=== PATIENT | male | born 1955 | race Caucasian/White ===

== ENCOUNTER → 2024-01-14 16:58 | Outpatient (REF) | payer OTHER, SELFPAY | LOC: RAD 16:58 | PROVIDERS: ATTENDING PHYSICIAN Student in an Organized Health Care Education/Training Program | DX: M79.89 Other specified soft tissue disorders (principal); R60.9 Edema, unspecified | CPT/HCPCS: 93971 ==

== ENCOUNTER 2024-02-01 15:41 | Emergency (ER) | payer OTHER, SELFPAY ==
[2024-02-01 15:46] VITALS: BP 177/96
[2024-02-01 16:00] VITALS: BP 158/99
--- NOTE | 2024-02-01 16:20 | ED.GENMED ---
History of Present Illness
General
Chief Complaint: Heart Rate Problem
Source: patient and spouse
Exam Limitations: none
Time Seen by Provider: 02/01/24 16:16
Nursing documentation reviewed up to this point in time: agreed with
History of Present Illness
History of Present Illness:
68-year-old male presents emergency department due to elevated blood pressure and heart rate in the 150s. He has had these episodes in the past, but they always go away. Today lasted longer. He follows with Dr. Emerson.
Past History
Past History
ED Past Medical History: HTN, Renal failure, Other (Cryptococcal meningitis ) and Other (Diverticulosis, pneumonia )
ED Past Surgical History: Other (Renal transplant 1999 and again November 2008 )
Social History
Tobacco: Former smoker
Alcohol: None
Drug: None
Personal:
Living: with family
Employment: Not employed
Review of Systems
Review of Systems
Allergies reviewed?: Yes
All Other Systems: Not applicable
Constitutional: Reports no symptoms
EENT: Reports no symptoms
Respiratory: Reports no symptoms
Cardiac: Reports palpitations
ABD/GI: Reports no symptoms
: Reports no symptoms
Musculoskeletal: Reports no symptoms
Skin: Reports no symptoms
Neurological: Reports no symptoms
Endocrine: Reports no symptoms
Hematologic/Lymphatic: Reports no symptoms
Psychiatric: Reports no symptoms
Phy Exam
Physical Exam
Physical Exam:
Physical Exam
General: no apparent distress, not acutely ill
Neck: supple. no meningeal signs. normal posterior pharynx
Heart: s1/s2 regular rate and rhythm, no murmur. equal radial
pulses.
HEENT: Pupils equal round reactive to light, EOMI
Lungs: no acute respiratory distress. clear bilaterally
Abdomen: normal bowel sounds. not tender. no CVAT
Neuro: alert and oriented. no focal neurological deficits cranial nerves II through XII intact
Skin: no rash
Psychiatric: well kept. interactive and cooperative
Extremities: no edema. no calf tenderness. negative homans. good distal pulses, AV fistula left arm, palpable thrill
Course
Orders/Labs/Results
Orders:
Orders
02/01/24 15:45
EKG [Electrocardiogram (*1)] Urgent
Reason for Study: Tachycardia
EKG- Treatment ONCE
02/01/24 16:33
Cardiac Monitoring- Treatment ONCE
IV Insert/Care/Rem.- Treatment PRN
02/01/24 16:35
Complete Blood Count/With Diff Urgent
Comprehensive Metabolic Panel Urgent
Magnesium Urgent
02/01/24 16:38
Electrocardiogram (*1) Urgent
EKG- Treatment ONCE
Abnormal Lab Results
02/01/24
16:35
Absolute Neuts (auto) 7.6 H 10^3/uL
(1.4-6.5)
Absolute Monos (auto) 0.9 H 10^3/uL
(0.1-0.6)
Neutrophils % 78.4 H %
(42.2-75.2)
Lymphocytes % 11.8 L %
(20.5-51.1)
Glucose 130 H mg/dl
(70-99)
02/01/24 16:35
02/01/24 16:35
Vital Signs
Initial and Last Documented VS:
Initial Vital Signs
Pulse Resp BP Pulse Ox
157 18 177/96 98
02/01/24 15:46 02/01/24 15:46 02/01/24 15:46 02/01/24 15:46
Last Documented Vital Signs
Temp Pulse Resp BP Pulse Ox
97.6 F 94 18 158/99 95
02/01/24 15:54 02/01/24 16:00 02/01/24 15:46 02/01/24 16:00 02/01/24 16:32
MDM/Problems Addressed
Differential Diagnosis Includes:
Atrial flutter, atrial fibrillation, SVT
MDM/Problems Addressed:
68-year-old male with paroxysmal atrial flutter. Discussed with Dr. Batres, cardiology, who recommends starting him on apixaban 5 mg twice daily and metoprolol succinate 25 mg daily. Patient stable for discharge. He is a converted to a sinus
rhythm.
Chronic conditions affecting care: HTN and Kidney disease
Acute Exacerbation and/or Progression of Chronic Illness: HTN and Kidney disease
*Pulse Oximetry
Patient hypoxic: no
*EKG
Interpreted by ED Provider?: Yes
EKG Intrepretation Date: 02/01/24
EKG Intrepretation Time: 15:49
Interpretation: abnormal
Comparison EKG: changes noted
Heart Rate: 137
Rate: tachycardiac
Rhythm: atrial flutter
[place]: normal axis
Interval: normal interval
QRS Pattern: normal QRS
Ischemia: non-specific ST changes
*Brush Polisher Interpretation
Rate: normal
Interpretation: normal
Heart Rate: 95
Rhythm: sinus
*Critical Care Note
Total Time (30-74mins, 75-104mins- exclusive of procedures): 30
comment:
Critical care statement: A total of 30 minutes of critical care time was provided for this patient. This includes management of unstable vital signs, evaluation of the patient at bedside, reviewing the patient's pertinent medical records, discussion
with consultants, review of old EKGs and review of pertinent medical records. This time with separate from time utilized to perform the aforementioned documented procedures
Data Reviewed
Review of Other/Old Records Reveals: Labs (Prior creatinine 1.0 on 04/19/2019)
Source: records
Patient Management
Social determinants of health affecting care: Living situation and Strong social support
Discussion with other providers: Quilting Supervisor (Cardiology, Dr. Batres)
Escalation/DeEscalation of care consider admission/obs:
admit not indicated, considered
ED Attending Note
-
Portions of this chart may have been created with voice recognition software.� Occasional wrong word or��sound alike� substitutions may have occurred due to the inherent limitations of voice recognition software.
Discharge Plan
Departure
Patient Disposition: Home (Routine Discharge)
Date of Disposition: 02/01/24
Time of Disposition: 17:23
Patient with high blood pressure during this ER visit?: Yes
Condition: Good
Discharge Problem:
Atrial flutter, paroxysmal
Instructions: Atrial flutter - Discharge instructions, BLOOD PRESSURE
Prescriptions:
New
apixaban 5 mg tablet
5 mg PO BID Qty: 60 0RF
metoprolol succinate 25 mg tablet extended release 24 hr
25 mg PO DAILY Qty: 30 0RF
No Action
aspirin 81 MG tablet,delayed release (DR/EC)
81 mg PO DAILY
calcium carbonate 500 MG tablet
1,000 units PO BID
mycophenolate sodium 180 MG tablet,delayed release (DR/EC)
540 mg PO BID
calcium-vitamin D3-vitamin K 1 EACH tablet,chewable
1 ea PO BID
enalapril maleate 10 MG tablet
10 mg PO HS
atorvastatin 10 MG tablet
10 mg PO QPM
tacrolimus 1 MG capsule
1.5 mg PO BID
Referrals:
Nisha Vasques CRNP [Specified Professional Personl] - 02/23/24 1:00 pm
Interventions
Interventions:
*Risk Screen - Suicide Last Done: 02/01/24 15:56
*General Assessment Last Done: 02/01/24 15:56
*Neglect/Abuse Screening Last Done: 02/01/24 15:56
*ED COVID-19 Vaccine History Last Done: 02/01/24 16:32
ED- Cardiac Assessment Last Done: 02/01/24 16:32
ED- Pulmonary Assessment Last Done: 02/01/24 16:32
Discharge Date and Time
Print Language: [id number]
[2024-02-01 16:30] VITALS: BP 158/99
[2024-02-01 16:31] VITALS: BMI 23.3
[2024-02-01 16:44] LABS: % Basophils 0.4 % (0-2); % Eosinophils 0.4 % (0-6); % Immature Granulocytes 0.3 % (0-0.5); % Lymphocytes 11.8 % (20.5-51.1); % Monocytes 8.7 % (1.7-9.3); % Neutrophils 78.4 % (42.2-75.2); Absolute Lymphocytes 1.2 10^3/uL (1.2-3.4); Absolute Monocytes 0.9 10^3/uL (0.1-0.6); Absolute Neutrophils 7.6 10^3/uL (1.4-6.5); Hematocrit 45.5 % (39.0-52.0); Mean Corpuscular Hgb 30.4 pg (27.0-31.0); Mean Corpuscular Volume 92.1 fL (80.0-94.0); Mean Platelet Volume 9.6 fL (7.4-10.4); Nucleated Red Blood Cells % 0 % (-); Platelet Count 232 10^3/uL (130-400); Red Blood Cell Count 4.94 10^6/uL (4.70-6.10); Red Cell Dist. Width 13.2 % (11.5-14.5); White Blood Cell Count 9.8 10^3/uL (4.8-10.8)
[2024-02-01 17:00] VITALS: BP 146/89
[2024-02-01 17:11] LABS: ALT (SGPT) 17 U/L (0-50); AST (SGOT) 21 U/L (17-59); Albumin 4.6 g/dl (3.5-5.0); Alkaline Phosphatase 57 U/L (38-126); Blood Urea Nitrogen 17 mg/dl (9-20); Carbon Dioxide 26 mmol/L (22-30); Chloride 102 mmol/L (98-107); Estimated Creatinine Clearance 79 ml/min; Glucose 130 mg/dl (70-99); Magnesium 1.9 mg/dl (1.6-2.3); Potassium 4.1 mmol/L (3.5-5.1); Sodium 138 mmol/L (135-145); Total Bilirubin 0.4 mg/dl (0.2-1.3); eGFR > 60.00
[2024-02-01 17:48] VITALS: BP 146/89
[2024-02-01 18:09] VITALS: BP 155/85
== END 2024-02-01 18:11 | disposition home or self-care (01) ==
LOC: EMR 15:41
PROVIDERS: EMERGENCY PHYSICIAN Emergency Medicine; FAMILY PHYSICIAN Student in an Organized Health Care Education/Training Program
DX: I48.92 Unspecified atrial flutter (principal); I12.9 Hypertensive chronic kidney disease with stage 1 through stage 4 chronic kidney disease, or unspecified chronic kidney disease; N18.9 Chronic kidney disease, unspecified; K57.90 Diverticulosis of intestine, part unspecified, without perforation or abscess without bleeding; Z94.0 Kidney transplant status; Z87.891 Personal history of nicotine dependence; Z87.01 Personal history of pneumonia (recurrent); Z79.82 Long term (current) use of aspirin; Z88.6 Allergy status to analgesic agent; Z88.0 Allergy status to penicillin
CPT/HCPCS: 99291; 80053; 83735; 85025; 93005

== ENCOUNTER → 2024-02-23 15:13 | Emergency (ER) | payer OTHER, SELFPAY ==
[2024-02-23 15:15] VITALS: BP 173/86
--- NOTE | 2024-02-23 15:21 | ED.GENMED ---
ED Provider Triage
-
Patient seen by provider in Triage?: Seen in Triage
68-year-old male sent in by Dr. Emerson for intermittent chest discomfort. He was here 2 weeks ago with paroxysmal atrial fibrillation. He is now anticoagulated. Seen by cardiology today but sent here for chest pain. He notes some mild chest
discomfort at triage but vital signs are stable
EKG shows no ischemic changes labs ordered including troponin BNP and lipase. Chest x-ray pending
Patient evaluated by healthcare provider at triage but does warrant further assessment
History of Present Illness
General
Chief Complaint: Chest Pain
Past History
Past History
ED Past Medical History: HTN, Renal failure, Other (Cryptococcal meningitis ) and Other (Diverticulosis, pneumonia )
ED Past Surgical History: Other (Renal transplant 1999 and again November 2008 )
Social History
Tobacco: Former smoker
Alcohol: None
Drug: None
Personal:
Living: with family
Employment: Not employed
Course
Orders/Labs/Results
Orders:
Orders
02/23/24 15:14
Electrocardiogram (*1) Urgent
Reason for Study: Chest Pain
EKG- Treatment ONCE
02/23/24 15:18
Complete Blood Count/With Diff Urgent
Comprehensive Metabolic Panel Urgent
Lipase Urgent
NT-proBNP Urgent
Troponin I Urgent
02/23/24 15:19
CR Chest - 2 Views Urgent
Comment:
Reason For Exam: chest pain
Vital Signs
Initial and Last Documented VS:
Initial Vital Signs
Temp Pulse Resp BP Pulse Ox
97.5 F 59 16 173/86 97
02/23/24 15:15 02/23/24 15:15 02/23/24 15:15 02/23/24 15:15 02/23/24 15:15
Last Documented Vital Signs
Temp Pulse Resp BP Pulse Ox
97.5 F 59 16 173/86 97
02/23/24 15:15 02/23/24 15:15 02/23/24 15:15 02/23/24 15:15 02/23/24 15:15
ED Attending Note
-
Portions of this chart may have been created with voice recognition software.� Occasional wrong word or��sound alike� substitutions may have occurred due to the inherent limitations of voice recognition software.
Discharge Plan
Departure
Prescriptions:
No Action
aspirin 81 MG tablet,delayed release (DR/EC)
81 mg PO DAILY
calcium carbonate 500 MG tablet
1,000 units PO BID
mycophenolate sodium 180 MG tablet,delayed release (DR/EC)
540 mg PO BID
calcium-vitamin D3-vitamin K 1 EACH tablet,chewable
1 ea PO BID
enalapril maleate 10 MG tablet
10 mg PO HS
atorvastatin 10 MG tablet
10 mg PO QPM
tacrolimus 1 MG capsule
1.5 mg PO BID
apixaban 5 mg tablet
5 mg PO BID Qty: 60 0RF
metoprolol succinate 25 mg tablet extended release 24 hr
25 mg PO DAILY Qty: 30 0RF
Interventions
Interventions:
*Risk Screen - Suicide Last Done: 02/23/24 15:15
*Neglect/Abuse Screening Last Done: 02/23/24 15:15
Discharge Date and Time
Print Language: [place]
[2024-02-23 15:47] LABS: % Basophils 0.6 % (0-2); % Eosinophils 1.9 % (0-6); % Immature Granulocytes 0.3 % (0-0.5); % Lymphocytes 24.4 % (20.5-51.1); % Monocytes 10.9 % (1.7-9.3); % Neutrophils 61.9 % (42.2-75.2); Absolute Eosinophils 0.1 10^3/uL (0-0.7); Absolute Lymphocytes 1.6 10^3/uL (1.2-3.4); Absolute Monocytes 0.7 10^3/uL (0.1-0.6); Absolute Neutrophils 4.2 10^3/uL (1.4-6.5); Hematocrit 43.9 % (39.0-52.0); Hemoglobin 14.4 g/dL (13.0-18.0); Mean Corp Hgb Conc. 32.8 g/dL (33.0-37.0); Mean Corpuscular Hgb 30.2 pg (27.0-31.0); Mean Platelet Volume 10.1 fL (7.4-10.4); Nucleated Red Blood Cells % 0 % (-); Platelet Count 191 10^3/uL (130-400); Red Blood Cell Count 4.77 10^6/uL (4.70-6.10); Red Cell Dist. Width 13.3 % (11.5-14.5); White Blood Cell Count 6.7 10^3/uL (4.8-10.8)
[2024-02-23 16:03] LABS: ALT (SGPT) 16 U/L (0-50); AST (SGOT) 18 U/L (17-59); Albumin 4.5 g/dl (3.5-5.0); Alkaline Phosphatase 66 U/L (38-126); Blood Urea Nitrogen 22 mg/dl (9-20); Calcium 9.7 mg/dl (8.4-10.2); Carbon Dioxide 26 mmol/L (22-30); Chloride 102 mmol/L (98-107); Glucose 114 mg/dl (70-99); Lipase 62 U/L (23-300); Potassium 4.3 mmol/L (3.5-5.1); Sodium 138 mmol/L (135-145); Total Bilirubin 0.5 mg/dl (0.2-1.3); Total Protein 6.8 g/dl (6.3-8.2); eGFR > 60.00
[2024-02-23 16:10] LABS: NT-proBNP 343 pg/ml; Troponin I < 0.012 ng/ml
== END | disposition left against medical advice (07) ==
LOC: EMR 15:13
PROVIDERS: Physician Assistant; EMERGENCY PHYSICIAN Student in an Organized Health Care Education/Training Program
DX: R07.89 Other chest pain (principal); Z53.21 Procedure and treatment not carried out due to patient leaving prior to being seen by health care provider
CPT/HCPCS: 99281; 80053; 83690; 83880; 84484; 85025; 93005

== ENCOUNTER → 2024-03-07 07:56 | Outpatient (REF) | payer OTHER, SELFPAY | LOC: HWRCS 07:56 | PROVIDERS: ATTENDING PHYSICIAN Internal Medicine Cardiovascular Disease; FAMILY PHYSICIAN Physician Assistant Medical | DX: R07.89 Other chest pain (principal) | CPT/HCPCS: 78452; 93017; A9500; J2785 ==

== ENCOUNTER → 2024-03-08 07:53 | Outpatient (REF) | payer OTHER, SELFPAY | LOC: HWRCS 07:53 | PROVIDERS: ATTENDING PHYSICIAN Internal Medicine Cardiovascular Disease; FAMILY PHYSICIAN Physician Assistant Medical | DX: R00.0 Tachycardia, unspecified (principal); Z94.0 Kidney transplant status; I25.10 Atherosclerotic heart disease of native coronary artery without angina pectoris; R00.2 Palpitations | CPT/HCPCS: 93306 ==